=== PATIENT | male | born 1945 | race African-American/Black ===

== ENCOUNTER 2019-05-22 05:11 | Inpatient (IN) | payer MEDICAID, MEDICARE, OTHER ==
[~2019-05-22] VITALS: Ht 172.7 cm; Wt 89.9 kg
[2019-05-22] MEDS ORDERED: IPRATROPIUM BROMIDE 0.5 MG/2.5 ML NEB SOLUTION NEB ONE (05:30)
[2019-05-22] MEDS ORDERED: ALBUTEROL SULFATE 5 MG/ML 20 ML NEB SOLN [BULK] NEB ONE (05:30)
[2019-05-22] MEDS ORDERED: 0.9% SODIUM CHLORIDE 10 ML SYRINGE IVP PRN ×3 (05:30→11:30)
[2019-05-22] MEDS ORDERED: MethylPREDNISolone SOD SUCC 125 MG/2 ML VIAL IVP ONE (05:30)
[2019-05-22 05:37] LABS: ABG A-A DIFF O2 199.7 mmHg (10-20.0); ABG BASE EXCESS -1.7 mmol/L (-2.0-3.0); ABG CARBOXYHEMOGLOBIN 0.7 % (0.0-1.5); ABG HCO3 23.1 mmol/L (22.0-26.0); ABG METHEMOGLOBIN 0.2 % (0.0-1.5); ABG OXYGEN CONTENT 16.9 mL/dL (15.0-23.0); ABG OXYGEN SATURATION 97.9 % (95.0-98.0); ABG PCO2 41 mmHg (35-45); ABG PH 7.373 (7.35-7.450); ABG TOTAL HEMOGLOBIN 12.3 G/dL (12.0-18.0); O2 DEVICE,BLOOD GAS BIPAP (ROOM AIR); PO2, ARTERIAL BG 110.5 mmHg (75.0-83.0); SITE, BLOOD GAS LFT RADIAL; SOURCE, BLOOD GAS ARTERIAL; TEMPERATURE, FAHRENHEIT, BG 98.5 FAHREN (96.0-98.6)
[2019-05-22 05:41] LABS: BASOPHILS % (AUTO) 0.5 % (0.0-2.0); EOSINOPHILS % (AUTO) 1.9 % (1.0-6.0); HEMATOCRIT 37.4 % (41-53); HEMOGLOBIN 12.2 g/dL (13.5-17.5); LYMPHOCYTES # (AUTO) 3.4 K/uL (1.0-4.8); LYMPHOCYTES % (AUTO) 47.1 % (22.0-44.0); MEAN CORPUSCULAR HEMOGLOBIN 29.3 pg (26.0-34.0); MEAN CORPUSCULAR HGB CONC 32.5 G/dL (31.0-37.0); MEAN CORPUSCULAR VOLUME 90 fL (80-100); MONOCYTES # (AUTO) 0.4 K/uL (0.1-1.0); MONOCYTES % (AUTO) 5.8 % (2.0-9.0); NEUTROPHILS # (AUTO) 3.2 K/uL (1.8-7.7); NEUTROPHILS % (AUTO) 44.7 % (40.0-70.0); PLATELET COUNT (AUTO) 306 K/uL (150-450); RED BLOOD CELL COUNT(AUTO) 4.15 MIL/uL (4.50-5.90); RED CELL DISTRIBUTION WIDTH 16.9 % (11.5-14.5)
[2019-05-22] MEDS ORDERED: CefTRIAXone 1 GM/DEXTROSE 50 ML IV ONE (05:45)
[2019-05-22] MEDS ORDERED: AZITHROMYCIN 500 MG/NS 250 ML IV ONE (05:45)
[2019-05-22] MEDS ORDERED: ACETAMINOPHEN 325 MG TABLET PO PRN ×2 (05:45→11:30)
[2019-05-22] MEDS ORDERED: NITROGLYCERIN 100 MG in DEXTROSE 5%-WATER 230 ML IV PRN (05:45)
[2019-05-22] MEDS ORDERED: FUROSEMIDE 40 MG/4 ML VIAL IVP ONE (05:45)
[2019-05-22] MEDS ORDERED: ONDANSETRON HCL 4 MG/2 ML VIAL IVP PRN ×2 (05:45→11:30)
[2019-05-22 05:52] LABS: ANION GAP 9 mmol/L (8-16); CALCIUM, TOTAL 9.1 mg/dL (8.8-10.5); CARBON DIOXIDE 29 mmol/L (22-29); CHLORIDE 103 mmol/L (98-107); CREATININE 1.07 mg/dL (0.60-1.30); GLUCOSE,RANDOM 148 mg/dL (70-110); POTASSIUM 3.6 mmol/L (3.5-5.1); SODIUM SERUM 141 mmol/L (136-145); UREA NITROGEN, BLOOD 18 mg/dL (7-18)
[2019-05-22 05:53] LABS: INR 1.1 (0.9-1.1)
[2019-05-22 05:58] LABS: ALANINE AMINOTRANSFERASE 140 U/L (12-78); ALKALINE PHOSPHATASE 66 U/L (46-116); ASPARTATE AMINOTRANSFERASE 114 U/L (15-37); BILIRUBIN,TOTAL 0.3 mg/dL (0.1-1.0); TOTAL PROTEIN, SERUM 9.7 g/dL (6.4-8.2)
[2019-05-22 06:00] LABS: LACTIC ACID 1.9 mmol/L (0.4-2.0)
[2019-05-22] MEDS ORDERED: NITROGLYCERIN 50 MG/D5% WATER 250 ML IV PRN ×2 (06:00)
[2019-05-22 06:02] LABS: GLOMERULAR FILTR. RATE CALC > 60 mL/min (>60)
[2019-05-22] MEDS ORDERED: 0.9% SODIUM CHLORIDE 15 ML NEB SOLUTION NEB ONE (06:43)
[2019-05-22 07:14] LABS: APPEARANCE,URINE CLEAR (CLEAR); BILIRUBIN,URINE NEGATIVE (NEGATIVE); GLUCOSE, URINE (UA) NEGATIVE (NEGATIVE); KETONES,URINE NEGATIVE (NEGATIVE); LEUKOCYTE ESTERASE ,URINE NEGATIVE (NEGATIVE); NITRATE,URINE NEGATIVE (NEGATIVE); OCCULT BLOOD,URINE TRACE (NEGATIVE); PROTEIN,URINE SEE CONFIRM (NEGATIVE); UROBILINOGEN,URINE 0.2 mg/dL (<=1.0)
[2019-05-22 07:17] LABS: BACTERIA,URINE None Seen /HPF (None Seen); RBC,URINE 0-2 /HPF (0-2); SQUAMOUS EPITHELIAL CELL,UR Rare /LPF (None Seen); SULFOSALICYLIC ACID,URINE Trace (Negative); WBC,URINE None Seen /HPF (0-5)
[2019-05-22 08:00] VITALS: BP 161/120
[2019-05-22] MEDS ORDERED: INFLUENZA VIRUS VACCINE QVS 2019-20 (3YR+)/PF 60 MCG/0.5 ML SYRINGE IM ONE (10:45)
[2019-05-22] MEDS ORDERED: PNEUMOCOCCAL VACCINE POLYVALENT 0.5 ML VIAL [PPSV23] IM ONE (10:45)
[2019-05-22] MEDS ORDERED: POTASSIUM CHLORIDE 20 MEQ ER TABLET PO PRN (11:30)
[2019-05-22] MEDS ORDERED: CARVEDILOL 3.125 MG TABLET PO SCH (11:30)
[2019-05-22] MEDS: FAMOTIDINE 10 MG/ML 2 ML VIAL IVP SCH (11:30)
[2019-05-22] MEDS ORDERED: OxyCODONE HCL/ACETAMINOPHEN 5-325 MG TABLET PO PRN ×2 (11:30)
[2019-05-22] MEDS ORDERED: ALBUTEROL SULFATE 2.5 MG/0.5 ML NEB SOLUTION NEB PRN (11:30)
[2019-05-22] MEDS ORDERED: MAGNESIUM HYDROXIDE SUSPENSION 30 ML UDCUP PO PRN (11:30)
[2019-05-22] MEDS ORDERED: DEXTROSE 50%-WATER 25 GM/50 ML SYRINGE IVP PRN (11:30)
[2019-05-22] MEDS ORDERED: POTASSIUM CHL 10 MEQ/WATER 50 ML IV PRN (11:30)
[2019-05-22 12:00] VITALS: BP 171/90
[2019-05-22] MEDS: FUROSEMIDE 40 MG/4 ML VIAL IVP SCH ×2 (12:18→21:09)
[2019-05-22] MEDS: DOCUSATE SODIUM 100 MG CAPSULE PO SCH ×2 (12:18→21:09)
[2019-05-22] MEDS: HydrALAZINE HCL 20 MG/ML VIAL IVP PRN (12:52)
[2019-05-22] MEDS: IPRATROPIUM BROMIDE 0.5 MG/2.5 ML NEB SOLUTION NEB SCH ×2 (14:57→20:53)
[2019-05-22] MEDS: ALBUTEROL SULFATE 2.5 MG/0.5 ML NEB SOLUTION NEB SCH ×2 (14:58→20:53)
[2019-05-22 16:00] VITALS: BP 129/72
[2019-05-22 17:44] LABS: GLUCOSE,POINT OF CARE 96 MG/DL (70-110)
[2019-05-22] MEDS: CARVEDILOL 12.5 MG TABLET PO SCH (21:09)
[2019-05-22] MEDS: INSULIN LISPRO 100 UNITS/ML SQ PRN (21:37)
[2019-05-23] VITALS: BP 145/65
[2019-05-23] MEDS: IPRATROPIUM BROMIDE 0.5 MG/2.5 ML NEB SOLUTION NEB SCH ×4 (02:03→21:03)
[2019-05-23] MEDS: ALBUTEROL SULFATE 2.5 MG/0.5 ML NEB SOLUTION NEB SCH ×4 (02:03→21:03)
[2019-05-23 04:00] VITALS: BP 157/88
[2019-05-23] MEDS: HydrALAZINE HCL 20 MG/ML VIAL IVP PRN (04:39)
[2019-05-23 05:05] LABS: BASOPHILS % (AUTO) 0.7 % (0.0-2.0); EOSINOPHILS % (AUTO) 0.4 % (1.0-6.0); HEMATOCRIT 33.4 % (41-53); LYMPHOCYTES # (AUTO) 1.9 K/uL (1.0-4.8); LYMPHOCYTES % (AUTO) 28.9 % (22.0-44.0); MEAN CORPUSCULAR HEMOGLOBIN 29.3 pg (26.0-34.0); MEAN CORPUSCULAR HGB CONC 32.9 G/dL (31.0-37.0); MEAN CORPUSCULAR VOLUME 89 fL (80-100); MONOCYTES # (AUTO) 0.6 K/uL (0.1-1.0); MONOCYTES % (AUTO) 8.6 % (2.0-9.0); NEUTROPHILS % (AUTO) 61.4 % (40.0-70.0); PLATELET COUNT (AUTO) 255 K/uL (150-450); RED BLOOD CELL COUNT(AUTO) 3.76 MIL/uL (4.50-5.90); RED CELL DISTRIBUTION WIDTH 16.7 % (11.5-14.5)
[2019-05-23 05:16] LABS: CALCIUM, TOTAL 9.2 mg/dL (8.8-10.5); CREATININE 1.47 mg/dL (0.60-1.30); POTASSIUM 4.1 mmol/L (3.5-5.1)
[2019-05-23 07:14] LABS: GLUCOSE,POINT OF CARE 140 MG/DL (70-110)
[2019-05-23 07:14] LABS: GLUCOSE,POINT OF CARE 94 MG/DL (70-110)
[2019-05-23 07:14] LABS: GLUCOSE,POINT OF CARE 111 MG/DL (70-110)
[2019-05-23 08:00] VITALS: BP 170/109
[2019-05-23] MEDS: FAMOTIDINE 10 MG/ML 2 ML VIAL IVP SCH (08:40)
[2019-05-23] MEDS: LOSARTAN POTASSIUM 50 MG TABLET PO SCH (08:40)
[2019-05-23] MEDS: DOCUSATE SODIUM 100 MG CAPSULE PO SCH ×2 (08:40→20:26)
[2019-05-23] MEDS: CARVEDILOL 12.5 MG TABLET PO SCH ×2 (08:40→20:27)
[2019-05-23] MEDS: FUROSEMIDE 40 MG/4 ML VIAL IVP SCH (08:41)
[2019-05-23] MEDS ORDERED: LOSARTAN POTASSIUM 25 MG TABLET PO SCH (09:00)
[2019-05-23 12:00] VITALS: BP 127/66
[2019-05-23 14:02] LABS: GLUCOSE,POINT OF CARE 104 MG/DL (70-110)
[2019-05-23 14:46] VITALS: BP 128/67
[2019-05-23 20:13] VITALS: BP 141/85
[2019-05-24] VITALS (19 sets, daily range): BP systolic 125–173; BP diastolic 62–134
[2019-05-24] MEDS: IPRATROPIUM BROMIDE 0.5 MG/2.5 ML NEB SOLUTION NEB SCH ×2 (02:29→07:37)
[2019-05-24] MEDS: ALBUTEROL SULFATE 2.5 MG/0.5 ML NEB SOLUTION NEB SCH ×2 (02:30→07:37)
[2019-05-24 06:28] LABS: BASOPHILS % (AUTO) 0.4 % (0.0-2.0); EOSINOPHILS % (AUTO) 4.2 % (1.0-6.0); HEMATOCRIT 34.2 % (41-53); HEMOGLOBIN 11.2 g/dL (13.5-17.5); LYMPHOCYTES # (AUTO) 1.9 K/uL (1.0-4.8); LYMPHOCYTES % (AUTO) 39.1 % (22.0-44.0); MEAN CORPUSCULAR HEMOGLOBIN 29.5 pg (26.0-34.0); MEAN CORPUSCULAR HGB CONC 32.8 G/dL (31.0-37.0); MEAN CORPUSCULAR VOLUME 90 fL (80-100); MONOCYTES # (AUTO) 0.3 K/uL (0.1-1.0); NEUTROPHILS # (AUTO) 2.4 K/uL (1.8-7.7); NEUTROPHILS % (AUTO) 49.3 % (40.0-70.0); PLATELET COUNT (AUTO) 249 K/uL (150-450); RED CELL DISTRIBUTION WIDTH 17.2 % (11.5-14.5)
[2019-05-24 06:39] LABS: INR 1.1 (0.9-1.1); PROTHROMBIN TIME 11.1 SEC (9.4-11.6)
[2019-05-24] MEDS ORDERED: SODIUM CHLORIDE 0.9% 2,000 ML ONE (06:43)
[2019-05-24 06:50] LABS: ALANINE AMINOTRANSFERASE 78 U/L (12-78); ALBUMIN 2.4 g/dL (3.4-5.0); ALKALINE PHOSPHATASE 47 U/L (46-116); ANION GAP 6 mmol/L (8-16); ASPARTATE AMINOTRANSFERASE 42 U/L (15-37); BILIRUBIN,TOTAL 0.2 mg/dL (0.1-1.0); CALCIUM, TOTAL 8.4 mg/dL (8.8-10.5); CARBON DIOXIDE 28 mmol/L (22-29); CHLORIDE 105 mmol/L (98-107); CREATININE 1.13 mg/dL (0.60-1.30); GLUCOSE,RANDOM 93 mg/dL (70-110); POTASSIUM 4.2 mmol/L (3.5-5.1); SODIUM SERUM 139 mmol/L (136-145); UREA NITROGEN, BLOOD 29 mg/dL (7-18)
[2019-05-24 06:54] LABS: GLOMERULAR FILTR. RATE CALC > 60 mL/min (>60)
[2019-05-24] MEDS: CARVEDILOL 12.5 MG TABLET PO SCH ×2 (08:06→21:49)
[2019-05-24] MEDS: LOSARTAN POTASSIUM 50 MG TABLET PO SCH (08:06)
[2019-05-24] MEDS ORDERED: HEPARIN SODIUM 1000 UNITS/NS 1,000 ML ONE (08:23)
[2019-05-24] MEDS ORDERED: IOHEXOL 300 MG/ML 150 ML VIAL ONE (08:23)
[2019-05-24] MEDS ORDERED: SODIUM BICARBONATE 50 MEQ/50 ML VIAL ONE (08:23)
[2019-05-24] MEDS ORDERED: LIDOCAINE/PF 1% 30 ML VIAL ONE (08:23)
[2019-05-24] MEDS ORDERED: HEPARIN SODIUM 1000 UNITS/NS 500 ML ONE (08:26)
[2019-05-24] MEDS: DOCUSATE SODIUM 100 MG CAPSULE PO SCH ×2 (09:00→21:00)
[2019-05-24] MEDS ORDERED: MIDAZOLAM HCL 2 MG/2 ML VIAL ONE (09:14)
[2019-05-24] MEDS ORDERED: FentaNYL CITRATE-PF 100 MCG/2 ML VIAL ONE (09:14)
[2019-05-24] MEDS ORDERED: TICAGRELOR 90 MG TABLET ONE (09:25)
[2019-05-24] MEDS ORDERED: ASPIRIN 325 MG TABLET ONE (09:25)
[2019-05-24] MEDS ORDERED: IOHEXOL 300 MG/ML 100 ML VIAL ONE (09:31)
[2019-05-24] MEDS ORDERED: IOHEXOL 300 MG/ML 50 ML VIAL ONE (09:31)
[2019-05-24] MEDS ORDERED: NITROGLYCERIN 50 MG/D5% WATER 250 ML ONE (09:47)
[2019-05-24] MEDS ORDERED: VERAPAMIL HCL 2.5 MG/ML 2 ML VIAL ONE (09:47)
[2019-05-24] MEDS ORDERED: HEPARIN SODIUM,PORCINE 1,000 UNITS/ML 10 ML VIAL ONE (09:50)
[2019-05-24] MEDS ORDERED: HEPARIN SODIUM 2,000 UNITS in HEPARIN SODIUM 1000 UNITS/NS 1,000 ML IARTER ONE (10:19)
[2019-05-24] MEDS ORDERED: SODIUM CHLORIDE 0.9% 500 ML IV ONE (10:19)
[2019-05-24] MEDS ORDERED: MIDAZOLAM HCL 2 MG/2 ML VIAL IVP ONE (10:30)
[2019-05-24] MEDS ORDERED: ASPIRIN 325 MG TABLET PO ONE (10:30)
[2019-05-24] MEDS ORDERED: VERAPAMIL HCL 2.5 MG/ML 2 ML VIAL ICOR ONE (10:30)
[2019-05-24] MEDS ORDERED: IOHEXOL 300 MG/ML 100 ML VIAL IARTER ONE (10:30)
[2019-05-24] MEDS ORDERED: NITROGLYCERIN/D5W 50 MG/250 ML IV BOTTLE ICOR ONE (10:30)
[2019-05-24] MEDS ORDERED: HEPARIN SODIUM,PORCINE 5,000 UNITS/ML VIAL IVP ONE ×4 (10:30→14:30)
[2019-05-24] MEDS ORDERED: TICAGRELOR 90 MG TABLET PO ONE (10:30)
[2019-05-24] MEDS ORDERED: IOHEXOL 300 MG/ML 150 ML VIAL IARTER ONE (10:30)
[2019-05-24] MEDS ORDERED: LIDOCAINE 1% 30 ML/SOD BICARB 8.4% 4 ML SQ ONE (10:30)
[2019-05-24] MEDS ORDERED: FentaNYL CITRATE-PF 100 MCG/2 ML VIAL IVP ONE (10:30)
[2019-05-24] MEDS: FAMOTIDINE 10 MG/ML 2 ML VIAL IVP SCH (10:45)
[2019-05-24] MEDS: AmLODIPine BESYLATE 5 MG TABLET PO SCH (11:45)
[2019-05-24 12:29] LABS: GLUCOSE,POINT OF CARE 79 MG/DL (70-110)
[2019-05-24] MEDS: HydrALAZINE HCL 20 MG/ML VIAL IVP PRN (14:14)
[2019-05-24] MEDS: TICAGRELOR 90 MG TABLET PO SCH (21:49)
[2019-05-25] VITALS (7 sets, daily range): BP systolic 122–158; BP diastolic 43–96
[2019-05-25] MEDS: ALBUTEROL SULFATE 2.5 MG/0.5 ML NEB SOLUTION NEB SCH ×4 (01:21→19:39)
[2019-05-25] MEDS: IPRATROPIUM BROMIDE 0.5 MG/2.5 ML NEB SOLUTION NEB SCH ×4 (01:21→19:39)
[2019-05-25 06:14] LABS: BASOPHILS % (AUTO) 0.3 % (0.0-2.0); EOSINOPHILS % (AUTO) 4.4 % (1.0-6.0); HEMATOCRIT 35.8 % (41-53); HEMOGLOBIN 11.7 g/dL (13.5-17.5); LYMPHOCYTES % (AUTO) 41.3 % (22.0-44.0); MEAN CORPUSCULAR HEMOGLOBIN 29.3 pg (26.0-34.0); MEAN CORPUSCULAR HGB CONC 32.7 G/dL (31.0-37.0); MEAN CORPUSCULAR VOLUME 90 fL (80-100); MONOCYTES # (AUTO) 0.3 K/uL (0.1-1.0); MONOCYTES % (AUTO) 7.3 % (2.0-9.0); NEUTROPHILS # (AUTO) 2.2 K/uL (1.8-7.7); NEUTROPHILS % (AUTO) 46.7 % (40.0-70.0); PLATELET COUNT (AUTO) 258 K/uL (150-450); RED CELL DISTRIBUTION WIDTH 17.2 % (11.5-14.5)
[2019-05-25 06:34] LABS: ALANINE AMINOTRANSFERASE 59 U/L (12-78); ALBUMIN 2.3 g/dL (3.4-5.0); ALKALINE PHOSPHATASE 45 U/L (46-116); ANION GAP 5 mmol/L (8-16); ASPARTATE AMINOTRANSFERASE 31 U/L (15-37); BILIRUBIN,TOTAL 0.3 mg/dL (0.1-1.0); CALCIUM, TOTAL 8.4 mg/dL (8.8-10.5); CARBON DIOXIDE 27 mmol/L (22-29); CHLORIDE 104 mmol/L (98-107); CREATININE 1.08 mg/dL (0.60-1.30); GLUCOSE,RANDOM 96 mg/dL (70-110); SODIUM SERUM 136 mmol/L (136-145); TOTAL PROTEIN, SERUM 7.9 g/dL (6.4-8.2); UREA NITROGEN, BLOOD 17 mg/dL (7-18)
[2019-05-25 06:42] LABS: GLOMERULAR FILTR. RATE CALC > 60 mL/min (>60)
[2019-05-25 06:44] LABS: GLUCOSE,POINT OF CARE 122 MG/DL (70-110)
[2019-05-25] MEDS: DOCUSATE SODIUM 100 MG CAPSULE PO SCH ×2 (09:00→20:08)
[2019-05-25] MEDS: LOSARTAN POTASSIUM 50 MG TABLET PO SCH (09:02)
[2019-05-25] MEDS: TICAGRELOR 90 MG TABLET PO SCH ×2 (09:03→19:56)
[2019-05-25] MEDS: CARVEDILOL 12.5 MG TABLET PO SCH ×2 (09:03→19:56)
[2019-05-25] MEDS: ASPIRIN 81 MG CHEWABLE TABLET PO SCH (09:03)
[2019-05-25] MEDS: FAMOTIDINE 10 MG/ML 2 ML VIAL IVP SCH (09:04)
[2019-05-25] MEDS: AmLODIPine BESYLATE 5 MG TABLET PO SCH (09:04)
[2019-05-25] MEDS ORDERED: ASPI81TA87 PO (12:01)
[2019-05-25] MEDS ORDERED: AMLO5TAB9 PO (12:03)
[2019-05-25] MEDS ORDERED: LOSA-88 PO (12:05)
[2019-05-25] MEDS ORDERED: CARV12.530 PO (12:05)
[2019-05-25] MEDS ORDERED: TICA90TA PO (12:06)
[2019-05-25] MEDS ORDERED: ACET-66 PO (12:08)
[2019-05-25] MEDS ORDERED: ALBU2TAB42 NEB (12:09)
[2019-05-25] MEDS ORDERED: IPRAHFA NEB (12:12)
[2019-05-25] MEDS ORDERED: MOM30 PO (12:15)
[2019-05-25] MEDS ORDERED: INSU100V SQ (12:15)
[2019-05-25] MEDS ORDERED: PERCT PO (12:17)
[2019-05-25] MEDS ORDERED: FURO20 PO (12:18)
[2019-05-26] MEDS: IPRATROPIUM BROMIDE 0.5 MG/2.5 ML NEB SOLUTION NEB SCH ×4 (02:19→21:34)
[2019-05-26] MEDS: ALBUTEROL SULFATE 2.5 MG/0.5 ML NEB SOLUTION NEB SCH ×4 (02:19→21:34)
[2019-05-26 04:37] VITALS: BP 134/71
[2019-05-26 07:25] VITALS: BP 150/94
[2019-05-26] MEDS: ASPIRIN 81 MG CHEWABLE TABLET PO SCH (07:48)
[2019-05-26] MEDS: CARVEDILOL 12.5 MG TABLET PO SCH ×2 (07:49→21:14)
[2019-05-26] MEDS: FAMOTIDINE 10 MG/ML 2 ML VIAL IVP SCH (07:49)
[2019-05-26] MEDS: TICAGRELOR 90 MG TABLET PO SCH ×2 (07:49→21:14)
[2019-05-26] MEDS: AmLODIPine BESYLATE 5 MG TABLET PO SCH (07:50)
[2019-05-26] MEDS: LOSARTAN POTASSIUM 50 MG TABLET PO SCH (07:50)
[2019-05-26] MEDS: DOCUSATE SODIUM 100 MG CAPSULE PO SCH ×2 (07:55→21:00)
[2019-05-26 11:36] VITALS: BP 146/72
[2019-05-26 11:51] LABS: GLUCOMETER DEV NAME(LOC) 5N.1; GLUCOSE,POINT OF CARE 106 MG/DL (70-110)
[2019-05-26 11:51] LABS: GLUCOMETER DEV NAME(LOC) 5N.1; GLUCOSE,POINT OF CARE 93 MG/DL (70-110)
[2019-05-26 11:51] LABS: GLUCOMETER DEV NAME(LOC) 5N.1; GLUCOSE,POINT OF CARE 123 MG/DL (70-110)
[2019-05-26 11:51] LABS: GLUCOMETER DEV NAME(LOC) 5N.1; GLUCOSE,POINT OF CARE 97 MG/DL (70-110)
[2019-05-26] MEDS: INSULIN LISPRO 100 UNITS/ML SQ PRN (11:58)
[2019-05-26 12:04] LABS: GLUCOMETER DEV NAME(LOC) 5S.1; GLUCOSE,POINT OF CARE 111 MG/DL (70-110)
[2019-05-26 12:04] LABS: GLUCOMETER DEV NAME(LOC) 5S.1; GLUCOSE,POINT OF CARE 146 MG/DL (70-110)
[2019-05-26 12:04] LABS: GLUCOMETER DEV NAME(LOC) 5S.1; GLUCOSE,POINT OF CARE 127 MG/DL (70-110)
[2019-05-26 12:04] LABS: GLUCOMETER DEV NAME(LOC) 5S.1; GLUCOSE,POINT OF CARE 99 MG/DL (70-110)
[2019-05-26 12:04] LABS: GLUCOMETER DEV NAME(LOC) 5S.1; GLUCOSE,POINT OF CARE 129 MG/DL (70-110)
[2019-05-26 12:04] LABS: GLUCOMETER DEV NAME(LOC) 5S.1; GLUCOSE,POINT OF CARE 111 MG/DL (70-110)
[2019-05-26 20:54] VITALS: BP 154/75
[2019-05-27 01:23] VITALS: BP 139/78
[2019-05-27] MEDS: IPRATROPIUM BROMIDE 0.5 MG/2.5 ML NEB SOLUTION NEB SCH ×4 (02:16→19:28)
[2019-05-27] MEDS: ALBUTEROL SULFATE 2.5 MG/0.5 ML NEB SOLUTION NEB SCH ×4 (02:16→19:28)
[2019-05-27 06:26] VITALS: BP 143/72
[2019-05-27 07:40] VITALS: BP 146/66
[2019-05-27] MEDS: ASPIRIN 81 MG CHEWABLE TABLET PO SCH (09:00)
[2019-05-27] MEDS: CARVEDILOL 12.5 MG TABLET PO SCH ×2 (09:00→20:23)
[2019-05-27] MEDS: FAMOTIDINE 10 MG/ML 2 ML VIAL IVP SCH ×2 (09:00→09:01)
[2019-05-27] MEDS: DOCUSATE SODIUM 100 MG CAPSULE PO SCH ×2 (09:00→20:24)
[2019-05-27] MEDS: TICAGRELOR 90 MG TABLET PO SCH ×2 (09:00→20:23)
[2019-05-27] MEDS: LOSARTAN POTASSIUM 50 MG TABLET PO SCH (09:00)
[2019-05-27] MEDS: AmLODIPine BESYLATE 5 MG TABLET PO SCH (09:01)
[2019-05-27 11:10] VITALS: BP 145/71
[2019-05-27] MEDS: INSULIN LISPRO 100 UNITS/ML SQ PRN (12:05)
[2019-05-27 15:50] VITALS: BP 126/70
[2019-05-27 18:59] LABS: GLUCOMETER DEV NAME(LOC) 5N.1; GLUCOSE,POINT OF CARE 100 MG/DL (70-110)
[2019-05-27 18:59] LABS: GLUCOMETER DEV NAME(LOC) 5N.1; GLUCOSE,POINT OF CARE 75 MG/DL (70-110)
[2019-05-27 19:00] LABS: GLUCOMETER DEV NAME(LOC) 5S.1; GLUCOSE,POINT OF CARE 121 MG/DL (70-110)
[2019-05-27 19:00] LABS: GLUCOMETER DEV NAME(LOC) 5S.1; GLUCOSE,POINT OF CARE 107 MG/DL (70-110)
[2019-05-27 19:00] LABS: GLUCOMETER DEV NAME(LOC) 5S.1; GLUCOSE,POINT OF CARE 137 MG/DL (70-110)
[2019-05-27 20:23] VITALS: BP 140/73
[2019-05-27 22:41] LABS: GLUCOMETER DEV NAME(LOC) 5N.1; GLUCOSE,POINT OF CARE 115 MG/DL (70-110)
[2019-05-28 00:38] VITALS: BP 110/56
[2019-05-28] MEDS: ALBUTEROL SULFATE 2.5 MG/0.5 ML NEB SOLUTION NEB SCH ×4 (02:34→19:19)
[2019-05-28] MEDS: IPRATROPIUM BROMIDE 0.5 MG/2.5 ML NEB SOLUTION NEB SCH ×4 (02:35→19:19)
[2019-05-28 04:18] VITALS: BP 136/64
[2019-05-28 05:20] LABS: GLUCOMETER DEV NAME(LOC) 5N.1; GLUCOSE,POINT OF CARE 89 MG/DL (70-110)
[2019-05-28 07:33] VITALS: BP 145/75
[2019-05-28 07:43] LABS: BASOPHILS % (AUTO) 0.4 % (0.0-2.0); HEMATOCRIT 36.1 % (41-53); HEMOGLOBIN 11.8 g/dL (13.5-17.5); LYMPHOCYTES # (AUTO) 2.2 K/uL (1.0-4.8); LYMPHOCYTES % (AUTO) 52.2 % (22.0-44.0); MEAN CORPUSCULAR HEMOGLOBIN 29.2 pg (26.0-34.0); MEAN CORPUSCULAR HGB CONC 32.8 G/dL (31.0-37.0); MEAN CORPUSCULAR VOLUME 89 fL (80-100); MONOCYTES # (AUTO) 0.3 K/uL (0.1-1.0); MONOCYTES % (AUTO) 8.1 % (2.0-9.0); NEUTROPHILS # (AUTO) 1.4 K/uL (1.8-7.7); NEUTROPHILS % (AUTO) 33.3 % (40.0-70.0); PLATELET COUNT (AUTO) 239 K/uL (150-450); RED BLOOD CELL COUNT(AUTO) 4.06 MIL/uL (4.50-5.90); RED CELL DISTRIBUTION WIDTH 17.3 % (11.5-14.5)
[2019-05-28 08:03] LABS: ANION GAP 8 mmol/L (8-16); CALCIUM, TOTAL 8.2 mg/dL (8.8-10.5); CARBON DIOXIDE 25 mmol/L (22-29); CHLORIDE 107 mmol/L (98-107); GLUCOSE,RANDOM 85 mg/dL (70-110); POTASSIUM 4.5 mmol/L (3.5-5.1); SODIUM SERUM 140 mmol/L (136-145); UREA NITROGEN, BLOOD 16 mg/dL (7-18)
[2019-05-28 08:05] LABS: GLOMERULAR FILTR. RATE CALC > 60 mL/min (>60)
[2019-05-28] MEDS: LOSARTAN POTASSIUM 50 MG TABLET PO SCH (08:18)
[2019-05-28] MEDS: ASPIRIN 81 MG CHEWABLE TABLET PO SCH (08:18)
[2019-05-28] MEDS: AmLODIPine BESYLATE 5 MG TABLET PO SCH (08:18)
[2019-05-28] MEDS: TICAGRELOR 90 MG TABLET PO SCH ×2 (08:18→21:04)
[2019-05-28] MEDS: DOCUSATE SODIUM 100 MG CAPSULE PO SCH ×2 (08:19→21:00)
[2019-05-28] MEDS: CARVEDILOL 12.5 MG TABLET PO SCH ×2 (08:19→21:04)
[2019-05-28] MEDS: FAMOTIDINE 10 MG/ML 2 ML VIAL IVP SCH (09:00)
[2019-05-28 12:06] VITALS: BP 126/81
[2019-05-28 16:17] VITALS: BP 120/69
[2019-05-28 21:34] VITALS: BP 111/70
[2019-05-29 01:04] VITALS: BP 106/68
[2019-05-29] MEDS: IPRATROPIUM BROMIDE 0.5 MG/2.5 ML NEB SOLUTION NEB SCH ×4 (01:44→20:10)
[2019-05-29] MEDS: ALBUTEROL SULFATE 2.5 MG/0.5 ML NEB SOLUTION NEB SCH ×4 (01:44→20:10)
[2019-05-29 03:40] LABS: GLUCOMETER DEV NAME(LOC) 5S.1; GLUCOSE,POINT OF CARE 92 MG/DL (70-110)
[2019-05-29 03:40] LABS: GLUCOMETER DEV NAME(LOC) 5S.1; GLUCOSE,POINT OF CARE 90 MG/DL (70-110)
[2019-05-29 03:40] LABS: GLUCOMETER DEV NAME(LOC) 5S.1; GLUCOSE,POINT OF CARE 112 MG/DL (70-110)
[2019-05-29 05:31] VITALS: BP 106/66
[2019-05-29 06:42] LABS: BASOPHILS % (AUTO) 0.6 % (0.0-2.0); EOSINOPHILS % (AUTO) 7.6 % (1.0-6.0); HEMATOCRIT 35.6 % (41-53); HEMOGLOBIN 11.9 g/dL (13.5-17.5); LYMPHOCYTES # (AUTO) 2.1 K/uL (1.0-4.8); LYMPHOCYTES % (AUTO) 47.6 % (22.0-44.0); MEAN CORPUSCULAR HEMOGLOBIN 29.7 pg (26.0-34.0); MEAN CORPUSCULAR HGB CONC 33.4 G/dL (31.0-37.0); MEAN CORPUSCULAR VOLUME 89 fL (80-100); MONOCYTES # (AUTO) 0.4 K/uL (0.1-1.0); MONOCYTES % (AUTO) 8.6 % (2.0-9.0); NEUTROPHILS # (AUTO) 1.6 K/uL (1.8-7.7); NEUTROPHILS % (AUTO) 35.6 % (40.0-70.0); PLATELET COUNT (AUTO) 260 K/uL (150-450); RED BLOOD CELL COUNT(AUTO) 3.99 MIL/uL (4.50-5.90); RED CELL DISTRIBUTION WIDTH 16.8 % (11.5-14.5)
[2019-05-29 06:56] LABS: ANION GAP 6 mmol/L (8-16); CALCIUM, TOTAL 8.5 mg/dL (8.8-10.5); CARBON DIOXIDE 25 mmol/L (22-29); CHLORIDE 105 mmol/L (98-107); GLOMERULAR FILTR. RATE CALC > 60 mL/min (>60); GLUCOSE,RANDOM 87 mg/dL (70-110); POTASSIUM 4.3 mmol/L (3.5-5.1); SODIUM SERUM 136 mmol/L (136-145); UREA NITROGEN, BLOOD 20 mg/dL (7-18)
[2019-05-29 07:39] LABS: GLUCOMETER DEV NAME(LOC) 5S.1; GLUCOSE,POINT OF CARE 95 MG/DL (70-110)
[2019-05-29 07:43] VITALS: BP 118/69
[2019-05-29] MEDS: AmLODIPine BESYLATE 5 MG TABLET PO SCH (08:12)
[2019-05-29] MEDS: ASPIRIN 81 MG CHEWABLE TABLET PO SCH (08:12)
[2019-05-29] MEDS: TICAGRELOR 90 MG TABLET PO SCH ×2 (08:12→20:39)
[2019-05-29] MEDS: CARVEDILOL 12.5 MG TABLET PO SCH ×2 (08:12→20:40)
[2019-05-29] MEDS: LOSARTAN POTASSIUM 50 MG TABLET PO SCH (08:13)
[2019-05-29] MEDS: DOCUSATE SODIUM 100 MG CAPSULE PO SCH ×2 (08:16→20:40)
[2019-05-29] MEDS: FAMOTIDINE 10 MG/ML 2 ML VIAL IVP SCH (09:00)
[2019-05-29 11:46] VITALS: BP 118/64
[2019-05-29 15:40] VITALS: BP 133/60
[2019-05-29 19:32] VITALS: BP 133/56
[2019-05-29 21:58] LABS: GLUCOMETER DEV NAME(LOC) 5S.1; GLUCOSE,POINT OF CARE 109 MG/DL (70-110)
[2019-05-29 21:58] LABS: GLUCOMETER DEV NAME(LOC) 5S.1; GLUCOSE,POINT OF CARE 103 MG/DL (70-110)
[2019-05-29 21:58] LABS: GLUCOMETER DEV NAME(LOC) 5S.1; GLUCOSE,POINT OF CARE 93 MG/DL (70-110)
[2019-05-30 00:01] VITALS: BP 122/76
[2019-05-30] MEDS: ALBUTEROL SULFATE 2.5 MG/0.5 ML NEB SOLUTION NEB SCH (02:17)
[2019-05-30] MEDS: IPRATROPIUM BROMIDE 0.5 MG/2.5 ML NEB SOLUTION NEB SCH (02:17)
[2019-05-30 04:50] VITALS: BP 134/69
[2019-05-30 05:41] LABS: GLUCOMETER DEV NAME(LOC) 5N.1; GLUCOSE,POINT OF CARE 84 MG/DL (70-110)
[2019-05-30 07:44] VITALS: BP 130/65
[2019-05-30] MEDS: FAMOTIDINE 10 MG/ML 2 ML VIAL IVP SCH (08:19)
[2019-05-30] MEDS: DOCUSATE SODIUM 100 MG CAPSULE PO SCH (08:19)
[2019-05-30] MEDS: ASPIRIN 81 MG CHEWABLE TABLET PO SCH (08:20)
[2019-05-30] MEDS: CARVEDILOL 12.5 MG TABLET PO SCH (08:20)
[2019-05-30] MEDS: TICAGRELOR 90 MG TABLET PO SCH (08:20)
[2019-05-30] MEDS: LOSARTAN POTASSIUM 50 MG TABLET PO SCH (08:21)
[2019-05-30] MEDS: AmLODIPine BESYLATE 5 MG TABLET PO SCH (08:22)
== END 2019-05-30 10:30 | disposition home or self-care (01) | DRG 246 ==
LOC: EMS 05:11 → ICU 06:36 → 5N 05-23 14:30 → ICU 05-24 10:07 → 5N 05-24 19:55 → UNDODISIN 05-26 15:40
PROVIDERS: ADMIT Internal Medicine; ATTEND Internal Medicine
PROC: 5A09357 Assistance with Respiratory Ventilation, Less than 24 Consecutive Hours, Continuous Positive Airway Pressure (ICD-10-PCS; 2019-05-22)
PROC: 3E0234Z Introduction of Serum, Toxoid and Vaccine into Muscle, Percutaneous Approach (ICD-10-PCS; 2019-05-22)
PROC: 3E02340 Introduction of Influenza Vaccine into Muscle, Percutaneous Approach (ICD-10-PCS; 2019-05-22)
PROC: 027034Z Dilation of Coronary Artery, One Artery with Drug-eluting Intraluminal Device, Percutaneous Approach (ICD-10-PCS; principal; 2019-05-24)
PROC: 4A023N7 Measurement of Cardiac Sampling and Pressure, Left Heart, Percutaneous Approach (ICD-10-PCS; 2019-05-24)
PROC: B2111ZZ Fluoroscopy of Multiple Coronary Arteries using Low Osmolar Contrast (ICD-10-PCS; 2019-05-24)
PROC: B2151ZZ Fluoroscopy of Left Heart using Low Osmolar Contrast (ICD-10-PCS; 2019-05-24)
PROC: B41F1ZZ Fluoroscopy of Right Lower Extremity Arteries using Low Osmolar Contrast (ICD-10-PCS; 2019-05-24)
DX: I25.10 Atherosclerotic heart disease of native coronary artery without angina pectoris (principal); E43 Unspecified severe protein-calorie malnutrition; J96.01 Acute respiratory failure with hypoxia; I50.23 Acute on chronic systolic (congestive) heart failure; I13.0 Hypertensive heart and chronic kidney disease with heart failure and stage 1 through stage 4 chronic kidney disease, or unspecified chronic kidney disease; J44.1 Chronic obstructive pulmonary disease with (acute) exacerbation; I16.1 Hypertensive emergency; E78.5 Hyperlipidemia, unspecified; E11.22 Type 2 diabetes mellitus with diabetic chronic kidney disease; I16.0 Hypertensive urgency; R74.8 Abnormal levels of other serum enzymes; F17.210 Nicotine dependence, cigarettes, uncomplicated; N18.9 Chronic kidney disease, unspecified; I25.5 Ischemic cardiomyopathy; D64.9 Anemia, unspecified; Z87.01 Personal history of pneumonia (recurrent); Z91.14 Patient's other noncompliance with medication regimen; Z91.19 Patient's noncompliance with other medical treatment and regimen; Z23 Encounter for immunization
CPT/HCPCS: 71250; 82805; 83036; 83605; 87040; 87081; 90686; 90732; 92920; 92928; 93005; 93306; 94640; 94644; 94660; 97162; 97165; 97535; 99291; G0378; J0360; J0456; J0696; J1644; J1940; J2250; J2930; J3010; J3490; J7030; Q9967

== ENCOUNTER → 2019-06-09 | Outpatient (CLI) | payer MEDICARE, OTHER ==
[~2019-06-09] VITALS: Ht 162.6 cm; Wt 86.0 kg
[~2019-06-09] MED LIST: AMLO5TAB9 PO; ASPI81TA87 PO; CARV12.530 PO; LOSA-88 PO; TICA90TA PO
[2019-06-09 10:21] VITALS: BP 150/85
== END | disposition home or self-care (01) ==
LOC: SRCNTR 10:12
PROVIDERS: ATTEND Internal Medicine Cardiovascular Disease
DX: I25.10 Atherosclerotic heart disease of native coronary artery without angina pectoris (principal); J44.9 Chronic obstructive pulmonary disease, unspecified; I10 Essential (primary) hypertension; E78.5 Hyperlipidemia, unspecified; Z79.899 Other long term (current) drug therapy; Z79.82 Long term (current) use of aspirin; Z95.828 Presence of other vascular implants and grafts; Z87.891 Personal history of nicotine dependence
CPT/HCPCS: 93005; G0463

== ENCOUNTER 2021-07-01 12:38 | Inpatient (IN) | payer MEDICARE ==
[~2021-07-01] VITALS: Ht 185.4 cm; Wt 104.5 kg
[~2021-07-01 12:38] MED LIST changes: +AMLO-257 PO; -AMLO5TAB9 PO; -ASPI81TA87 PO; +LOSA-382 PO; -LOSA-88 PO; -TICA90TA PO
[2021-07-01] MEDS ORDERED: DEXTROSE 50%-WATER 25 GM/50 ML SYRINGE IVP ONE ×4 (13:26→20:30)
[2021-07-01 14:06] LABS: BASOPHILS % (AUTO) 0.6 % (0.0-2.0); HEMATOCRIT 26.8 % (41-53); HEMOGLOBIN 8.6 g/dL (13.5-17.5); LYMPHOCYTES # (AUTO) 0.7 K/uL (1.0-4.8); LYMPHOCYTES % (AUTO) 22.4 % (22.0-44.0); MEAN CORPUSCULAR HEMOGLOBIN 27.8 pg (26.0-34.0); MEAN CORPUSCULAR HGB CONC 32.2 G/dL (31.0-37.0); MEAN CORPUSCULAR VOLUME 87 fL (80-100); MONOCYTES # (AUTO) 0.2 K/uL (0.1-1.0); MONOCYTES % (AUTO) 5.3 % (2.0-9.0); NEUTROPHILS # (AUTO) 2.3 K/uL (1.8-7.7); NEUTROPHILS % (AUTO) 69.7 % (40.0-70.0); PLATELET COUNT (AUTO) 167 K/uL (150-450); RED CELL DISTRIBUTION WIDTH 23.7 % (11.5-14.5)
[2021-07-01 14:16] LABS: CALCIUM, TOTAL 7.6 mg/dL (8.8-10.5); CREATININE 1.55 mg/dL (0.60-1.30); POTASSIUM 3.4 mmol/L (3.5-5.1)
[2021-07-01 14:19] LABS: INR 1.3 (0.9-1.1); PROTHROMBIN TIME 13.7 SEC (9.4-11.6)
[2021-07-01 14:26] LABS: ALBUMIN 1.6 g/dL (3.4-5.0); BILIRUBIN,TOTAL 0.3 mg/dL (0.1-1.0); TOTAL PROTEIN, SERUM 11.6 g/dL (6.4-8.2)
[2021-07-01 15:11] LABS: GLUCOSE,POINT OF CARE 74 MG/DL (70-110)
[2021-07-01 16:11] LABS: GLUCOSE,POINT OF CARE 64 MG/DL (70-110)
[2021-07-01 17:46] LABS: GLUCOSE,POINT OF CARE 61 MG/DL (70-110)
[2021-07-01 19:06] LABS: GLUCOSE,POINT OF CARE 57 MG/DL (70-110)
[2021-07-01 19:41] LABS: GLUCOSE,POINT OF CARE 61 MG/DL (70-110)
[2021-07-01 19:43] LABS: COVID AG,FIA SOURCE NASAL SWAB
[2021-07-01] MEDS ORDERED: OCTREOTIDE ACETATE 100 MCG/ML VIAL IVP ONE (19:45)
[2021-07-01] MEDS ORDERED: HYDROCODONE/ACETAMINOPHEN 5-325 MG TABLET PO PRN (20:00)
[2021-07-01] MEDS ORDERED: MORPHINE SULFATE 2 MG/ML SYRINGE IVP PRN (20:00)
[2021-07-01] MEDS ORDERED: ZOLPIDEM TARTRATE 5 MG TABLET PO PRN (20:00)
[2021-07-01] MEDS ORDERED: MAGNESIUM HYDROXIDE SUSPENSION 30 ML UDCUP PO PRN (20:00)
[2021-07-01] MEDS ORDERED: ONDANSETRON HCL 4 MG/2 ML VIAL IVP PRN (20:00)
[2021-07-01] MEDS ORDERED: BISACODYL 10 MG RECTAL RECTAL SUPPOSITORY PR PRN (20:00)
[2021-07-01] MEDS ORDERED: ACETAMINOPHEN 325 MG TABLET PO PRN (20:00)
[2021-07-01 20:10] LABS: GLUCOSE,POINT OF CARE 25 MG/DL (70-110)
[2021-07-01 20:46] LABS: GLUCOSE,POINT OF CARE 95 MG/DL (70-110)
[2021-07-01] MEDS: DOCUSATE SODIUM 100 MG CAPSULE PO SCH (21:00)
[2021-07-01 21:11] LABS: GLUCOSE,POINT OF CARE 144 MG/DL (70-110)
[2021-07-01] MEDS: CARVEDILOL 12.5 MG TABLET PO SCH (21:29)
[2021-07-01] MEDS: FUROSEMIDE 20 MG/2 ML VIAL IVP SCH (21:29)
[2021-07-01 21:51] LABS: GLUCOSE,POINT OF CARE 153 MG/DL (70-110)
[2021-07-01 22:48] VITALS: BP 151/81
[2021-07-02] MEDS: HEPARIN SODIUM,PORCINE 5,000 UNITS/ML VIAL SQ SCH ×3 (00:33→17:22)
[2021-07-02 04:45] VITALS: BP 136/82
[2021-07-02 05:49] LABS: BASOPHILS % (AUTO) 0.2 % (0.0-2.0); EOSINOPHILS % (AUTO) 3.4 % (1.0-6.0); HEMATOCRIT 25.1 % (41-53); LYMPHOCYTES # (AUTO) 0.6 K/uL (1.0-4.8); MEAN CORPUSCULAR HEMOGLOBIN 27.6 pg (26.0-34.0); MEAN CORPUSCULAR HGB CONC 31.8 G/dL (31.0-37.0); MEAN CORPUSCULAR VOLUME 87 fL (80-100); MONOCYTES # (AUTO) 0.2 K/uL (0.1-1.0); NEUTROPHILS # (AUTO) 1.5 K/uL (1.8-7.7); NEUTROPHILS % (AUTO) 64.4 % (40.0-70.0); PLATELET COUNT (AUTO) 164 K/uL (150-450); RED BLOOD CELL COUNT(AUTO) 2.89 MIL/uL (4.50-5.90)
[2021-07-02 06:11] LABS: CALCIUM, TOTAL 7.4 mg/dL (8.8-10.5); CREATININE 1.45 mg/dL (0.60-1.30); POTASSIUM 3.4 mmol/L (3.5-5.1)
[2021-07-02 07:06] LABS: GLUCOMETER DEV NAME(LOC) 5N.1C; GLUCOSE,POINT OF CARE 97 MG/DL (70-110)
[2021-07-02 07:06] LABS: GLUCOMETER DEV NAME(LOC) 5N.1C; GLUCOSE,POINT OF CARE 127 MG/DL (70-110)
[2021-07-02 07:49] VITALS: BP 127/76
[2021-07-02] MEDS: CARVEDILOL 12.5 MG TABLET PO SCH ×2 (08:01→20:24)
[2021-07-02] MEDS: FUROSEMIDE 20 MG/2 ML VIAL IVP SCH (08:01)
[2021-07-02] MEDS: DOCUSATE SODIUM 100 MG CAPSULE PO SCH ×3 (08:01→20:34)
[2021-07-02] MEDS: AmLODIPine BESYLATE 5 MG TABLET PO SCH (08:01)
[2021-07-02] MEDS: PANTOPRAZOLE SODIUM 40 MG DR TABLET PO SCH (08:01)
[2021-07-02 11:09] VITALS: BP 121/73
[2021-07-02 16:06] VITALS: BP 128/68
[2021-07-02] MEDS: NYSTATIN 15 GM POWDER BOTTLE TP SCH ×2 (17:21→20:25)
[2021-07-02 17:26] LABS: GLUCOMETER DEV NAME(LOC) 5S.2B; GLUCOSE,POINT OF CARE 68 MG/DL (70-110)
[2021-07-02 19:48] VITALS: BP 131/68
[2021-07-02 20:21] LABS: GLUCOMETER DEV NAME(LOC) 5N.1C; GLUCOSE,POINT OF CARE 73 MG/DL (70-110)
[2021-07-02] MEDS: FUROSEMIDE 40 MG/4 ML VIAL IVP SCH (20:24)
[2021-07-03] VITALS (8 sets, daily range): BP systolic 115–141; BP diastolic 58–81
[2021-07-03] MEDS: HEPARIN SODIUM,PORCINE 5,000 UNITS/ML VIAL SQ SCH ×4 (00:19→23:24)
[2021-07-03 03:31] LABS: GLUCOMETER DEV NAME(LOC) 5N.1C; GLUCOSE,POINT OF CARE 122 MG/DL (70-110)
[2021-07-03 06:51] LABS: GLUCOMETER DEV NAME(LOC) 5N.1C; GLUCOSE,POINT OF CARE 92 MG/DL (70-110)
[2021-07-03 07:01] LABS: BASOPHILS % (AUTO) 0.3 % (0.0-2.0); EOSINOPHILS % (AUTO) 2.7 % (1.0-6.0); HEMATOCRIT 26.1 % (41-53); HEMOGLOBIN 8.3 g/dL (13.5-17.5); LYMPHOCYTES # (AUTO) 0.8 K/uL (1.0-4.8); LYMPHOCYTES % (AUTO) 36.7 % (22.0-44.0); MEAN CORPUSCULAR HEMOGLOBIN 27.3 pg (26.0-34.0); MEAN CORPUSCULAR HGB CONC 31.7 G/dL (31.0-37.0); MEAN CORPUSCULAR VOLUME 86 fL (80-100); MONOCYTES # (AUTO) 0.2 K/uL (0.1-1.0); MONOCYTES % (AUTO) 8.5 % (2.0-9.0); NEUTROPHILS # (AUTO) 1.2 K/uL (1.8-7.7); NEUTROPHILS % (AUTO) 51.8 % (40.0-70.0); PLATELET COUNT (AUTO) 131 K/uL (150-450); RED BLOOD CELL COUNT(AUTO) 3.03 MIL/uL (4.50-5.90); RED CELL DISTRIBUTION WIDTH 23.8 % (11.5-14.5)
[2021-07-03 07:49] LABS: ANION GAP 1 mmol/L (8-16); CALCIUM, TOTAL 7.5 mg/dL (8.8-10.5); CARBON DIOXIDE 32 mmol/L (22-29); CHLORIDE 101 mmol/L (98-107); CREATININE 1.34 mg/dL (0.60-1.30); GLUCOSE,RANDOM 99 mg/dL (70-110); POTASSIUM 3.6 mmol/L (3.5-5.1); SODIUM SERUM 134 mmol/L (136-145); UREA NITROGEN, BLOOD 20 mg/dL (7-18)
[2021-07-03 07:52] LABS: GLOMERULAR FILTR. RATE CALC > 60 mL/min (>60)
[2021-07-03] MEDS: FUROSEMIDE 40 MG/4 ML VIAL IVP SCH ×2 (09:23→20:30)
[2021-07-03] MEDS: AmLODIPine BESYLATE 5 MG TABLET PO SCH (09:24)
[2021-07-03] MEDS: CARVEDILOL 12.5 MG TABLET PO SCH ×2 (09:24→20:29)
[2021-07-03] MEDS: PANTOPRAZOLE SODIUM 40 MG DR TABLET PO SCH (09:24)
[2021-07-03] MEDS: DOCUSATE SODIUM 100 MG CAPSULE PO SCH ×2 (09:25→20:30)
[2021-07-03] MEDS: NYSTATIN 15 GM POWDER BOTTLE TP SCH ×4 (09:35→20:30)
[2021-07-03 11:56] LABS: GLUCOMETER DEV NAME(LOC) 5S.2B; GLUCOSE,POINT OF CARE 84 MG/DL (70-110)
[2021-07-03] MEDS: SACUBITRIL/VALSARTAN 24-26 MG TABLET PO SCH (20:30)
[2021-07-04 00:21] LABS: GLUCOMETER DEV NAME(LOC) 5N.1C; GLUCOSE,POINT OF CARE 149 MG/DL (70-110)
[2021-07-04 00:21] LABS: GLUCOMETER DEV NAME(LOC) 5S.2B; GLUCOSE,POINT OF CARE 82 MG/DL (70-110)
[2021-07-04 04:13] VITALS: BP 109/60
[2021-07-04 07:47] VITALS: BP 114/68
[2021-07-04] MEDS: HEPARIN SODIUM,PORCINE 5,000 UNITS/ML VIAL SQ SCH ×3 (08:00→23:25)
[2021-07-04 09:37] LABS: GLUCOMETER DEV NAME(LOC) 5N.1C; GLUCOSE,POINT OF CARE 97 MG/DL (70-110)
[2021-07-04] MEDS: NYSTATIN 15 GM POWDER BOTTLE TP SCH ×4 (09:47→20:05)
[2021-07-04] MEDS: FUROSEMIDE 40 MG/4 ML VIAL IVP SCH (09:48)
[2021-07-04] MEDS: SACUBITRIL/VALSARTAN 24-26 MG TABLET PO SCH ×2 (09:49→20:04)
[2021-07-04] MEDS: PANTOPRAZOLE SODIUM 40 MG DR TABLET PO SCH (09:50)
[2021-07-04] MEDS: DOCUSATE SODIUM 100 MG CAPSULE PO SCH ×2 (09:50→20:05)
[2021-07-04] MEDS: CARVEDILOL 12.5 MG TABLET PO SCH ×2 (09:50→20:04)
[2021-07-04 10:04] LABS: BASOPHILS % (AUTO) 0.5 % (0.0-2.0); EOSINOPHILS % (AUTO) 1.5 % (1.0-6.0); HEMATOCRIT 25.8 % (41-53); HEMOGLOBIN 8.3 g/dL (13.5-17.5); LYMPHOCYTES % (AUTO) 36.8 % (22.0-44.0); MEAN CORPUSCULAR HEMOGLOBIN 27.9 pg (26.0-34.0); MEAN CORPUSCULAR HGB CONC 32.2 G/dL (31.0-37.0); MEAN CORPUSCULAR VOLUME 87 fL (80-100); MONOCYTES # (AUTO) 0.2 K/uL (0.1-1.0); MONOCYTES % (AUTO) 6.7 % (2.0-9.0); NEUTROPHILS # (AUTO) 1.5 K/uL (1.8-7.7); NEUTROPHILS % (AUTO) 54.5 % (40.0-70.0); PLATELET COUNT (AUTO) 138 K/uL (150-450); RED BLOOD CELL COUNT(AUTO) 2.98 MIL/uL (4.50-5.90); RED CELL DISTRIBUTION WIDTH 23.3 % (11.5-14.5)
[2021-07-04 11:37] VITALS: BP 124/73
[2021-07-04 12:06] LABS: GLUCOMETER DEV NAME(LOC) 5S.2B; GLUCOSE,POINT OF CARE 205 MG/DL (70-110)
[2021-07-04 15:18] VITALS: BP 131/67
[2021-07-04 18:31] LABS: GLUCOMETER DEV NAME(LOC) 5N.1C; GLUCOSE,POINT OF CARE 103 MG/DL (70-110)
[2021-07-04] MEDS: FUROSEMIDE 40 MG TABLET PO SCH (20:04)
[2021-07-04 20:07] VITALS: BP 117/64
[2021-07-05] VITALS (7 sets, daily range): BP systolic 112–141; BP diastolic 54–85
[2021-07-05 01:41] LABS: GLUCOMETER DEV NAME(LOC) 5N.1C; GLUCOSE,POINT OF CARE 118 MG/DL (70-110)
[2021-07-05 06:41] LABS: GLUCOMETER DEV NAME(LOC) 5N.1C; GLUCOSE,POINT OF CARE 107 MG/DL (70-110)
[2021-07-05] MEDS: HEPARIN SODIUM,PORCINE 5,000 UNITS/ML VIAL SQ SCH ×3 (08:00→23:55)
[2021-07-05] MEDS: SACUBITRIL/VALSARTAN 24-26 MG TABLET PO SCH ×3 (08:18→23:55)
[2021-07-05] MEDS: CARVEDILOL 12.5 MG TABLET PO SCH ×2 (08:18→23:55)
[2021-07-05] MEDS: PANTOPRAZOLE SODIUM 40 MG DR TABLET PO SCH (08:18)
[2021-07-05] MEDS: FUROSEMIDE 40 MG TABLET PO SCH ×2 (08:18→20:35)
[2021-07-05] MEDS: DOCUSATE SODIUM 100 MG CAPSULE PO SCH ×2 (08:18→20:36)
[2021-07-05] MEDS: NYSTATIN 15 GM POWDER BOTTLE TP SCH ×4 (08:19→20:36)
[2021-07-05 08:30] LABS: BASOPHILS % (AUTO) 0.4 % (0.0-2.0); EOSINOPHILS % (AUTO) 1.7 % (1.0-6.0); HEMATOCRIT 27.4 % (41-53); HEMOGLOBIN 8.6 g/dL (13.5-17.5); LYMPHOCYTES # (AUTO) 1.2 K/uL (1.0-4.8); LYMPHOCYTES % (AUTO) 40.6 % (22.0-44.0); MEAN CORPUSCULAR HEMOGLOBIN 27.1 pg (26.0-34.0); MEAN CORPUSCULAR HGB CONC 31.3 G/dL (31.0-37.0); MEAN CORPUSCULAR VOLUME 87 fL (80-100); MONOCYTES # (AUTO) 0.2 K/uL (0.1-1.0); MONOCYTES % (AUTO) 7.1 % (2.0-9.0); NEUTROPHILS # (AUTO) 1.4 K/uL (1.8-7.7); NEUTROPHILS % (AUTO) 50.2 % (40.0-70.0); PLATELET COUNT (AUTO) 159 K/uL (150-450); RED BLOOD CELL COUNT(AUTO) 3.17 MIL/uL (4.50-5.90); RED CELL DISTRIBUTION WIDTH 23.2 % (11.5-14.5)
[2021-07-05 08:49] LABS: ALANINE AMINOTRANSFERASE 17 U/L (12-78); ALBUMIN 1.3 g/dL (3.4-5.0); ALKALINE PHOSPHATASE 33 U/L (46-116); ANION GAP -1 mmol/L (8-16); ASPARTATE AMINOTRANSFERASE 20 U/L (15-37); BILIRUBIN,TOTAL 0.2 mg/dL (0.1-1.0); CALCIUM, TOTAL 7.5 mg/dL (8.8-10.5); CARBON DIOXIDE 36 mmol/L (22-29); CHLORIDE 99 mmol/L (98-107); CREATININE 1.29 mg/dL (0.60-1.30); GLUCOSE,RANDOM 71 mg/dL (70-110); POTASSIUM 3.9 mmol/L (3.5-5.1); SODIUM SERUM 134 mmol/L (136-145); TOTAL PROTEIN, SERUM 10.2 g/dL (6.4-8.2); UREA NITROGEN, BLOOD 22 mg/dL (7-18)
[2021-07-05 08:50] LABS: GLOMERULAR FILTR. RATE CALC > 60 mL/min (>60)
[2021-07-06 05:16] VITALS: BP 119/77
[2021-07-06 07:41] VITALS: BP 111/68
[2021-07-06 07:54] LABS: BASOPHILS % (AUTO) 0.4 % (0.0-2.0); EOSINOPHILS % (AUTO) 1.5 % (1.0-6.0); HEMATOCRIT 27.2 % (41-53); HEMOGLOBIN 8.8 g/dL (13.5-17.5); LYMPHOCYTES % (AUTO) 39.1 % (22.0-44.0); MEAN CORPUSCULAR HEMOGLOBIN 27.7 pg (26.0-34.0); MEAN CORPUSCULAR HGB CONC 32.4 G/dL (31.0-37.0); MEAN CORPUSCULAR VOLUME 85 fL (80-100); MONOCYTES # (AUTO) 0.2 K/uL (0.1-1.0); MONOCYTES % (AUTO) 6.5 % (2.0-9.0); NEUTROPHILS # (AUTO) 1.4 K/uL (1.8-7.7); NEUTROPHILS % (AUTO) 52.5 % (40.0-70.0); PLATELET COUNT (AUTO) 152 K/uL (150-450); RED BLOOD CELL COUNT(AUTO) 3.18 MIL/uL (4.50-5.90); RED CELL DISTRIBUTION WIDTH 23.2 % (11.5-14.5)
[2021-07-06 07:59] LABS: ALANINE AMINOTRANSFERASE 17 U/L (12-78); ALBUMIN 1.3 g/dL (3.4-5.0); ALKALINE PHOSPHATASE 27 U/L (46-116); ANION GAP -1 mmol/L (8-16); ASPARTATE AMINOTRANSFERASE 21 U/L (15-37); BILIRUBIN,TOTAL 0.2 mg/dL (0.1-1.0); CALCIUM, TOTAL 7.5 mg/dL (8.8-10.5); CARBON DIOXIDE 35 mmol/L (22-29); CHLORIDE 98 mmol/L (98-107); CREATININE 1.23 mg/dL (0.60-1.30); GLUCOSE,RANDOM 121 mg/dL (70-110); POTASSIUM 4.5 mmol/L (3.5-5.1); SODIUM SERUM 132 mmol/L (136-145); TOTAL PROTEIN, SERUM 9.8 g/dL (6.4-8.2); UREA NITROGEN, BLOOD 20 mg/dL (7-18)
[2021-07-06 08:04] LABS: GLOMERULAR FILTR. RATE CALC > 60 mL/min (>60)
[2021-07-06] MEDS: FUROSEMIDE 40 MG TABLET PO SCH ×2 (08:18→20:20)
[2021-07-06] MEDS: MULTIVITAMINS WITH MINERALS, THERAPEUTIC TABLET PO SCH (08:18)
[2021-07-06] MEDS: SACUBITRIL/VALSARTAN 24-26 MG TABLET PO SCH ×2 (08:18→20:20)
[2021-07-06] MEDS: NYSTATIN 15 GM POWDER BOTTLE TP SCH ×4 (08:18→20:20)
[2021-07-06] MEDS: THIAMINE 100 MG TABLET PO SCH (08:19)
[2021-07-06] MEDS: PANTOPRAZOLE SODIUM 40 MG DR TABLET PO SCH (08:19)
[2021-07-06] MEDS: CARVEDILOL 12.5 MG TABLET PO SCH ×2 (08:20→20:20)
[2021-07-06] MEDS: HEPARIN SODIUM,PORCINE 5,000 UNITS/ML VIAL SQ SCH ×3 (08:20→23:15)
[2021-07-06] MEDS: FOLIC ACID 1 MG TABLET PO SCH (08:24)
[2021-07-06 08:26] LABS: GLUCOMETER DEV NAME(LOC) 5N.1C; GLUCOSE,POINT OF CARE 110 MG/DL (70-110)
[2021-07-06 08:26] LABS: GLUCOMETER DEV NAME(LOC) 5S.2B; GLUCOSE,POINT OF CARE 93 MG/DL (70-110)
[2021-07-06 08:26] LABS: GLUCOMETER DEV NAME(LOC) 5S.2B; GLUCOSE,POINT OF CARE 105 MG/DL (70-110)
[2021-07-06 08:26] LABS: GLUCOMETER DEV NAME(LOC) 5N.1C; GLUCOSE,POINT OF CARE 92 MG/DL (70-110)
[2021-07-06] MEDS: DOCUSATE SODIUM 100 MG CAPSULE PO SCH ×2 (08:26→20:20)
[2021-07-06 11:14] VITALS: BP 114/59
[2021-07-06 13:31] LABS: GLUCOMETER DEV NAME(LOC) 5S.2B; GLUCOSE,POINT OF CARE 103 MG/DL (70-110)
[2021-07-06 15:29] VITALS: BP 113/66
[2021-07-06 19:59] VITALS: BP 104/59
[2021-07-06 23:56] VITALS: BP 114/58
[2021-07-07 01:46] LABS: GLUCOMETER DEV NAME(LOC) 5N.1C; GLUCOSE,POINT OF CARE 103 MG/DL (70-110)
[2021-07-07 04:46] VITALS: BP 115/59
[2021-07-07 07:07] VITALS: BP 110/62
[2021-07-07 07:17] LABS: BASOPHILS % (AUTO) 0.7 % (0.0-2.0); EOSINOPHILS % (AUTO) 2.2 % (1.0-6.0); HEMATOCRIT 29.4 % (41-53); HEMOGLOBIN 9.3 g/dL (13.5-17.5); LYMPHOCYTES # (AUTO) 1.6 K/uL (1.0-4.8); LYMPHOCYTES % (AUTO) 53.8 % (22.0-44.0); MEAN CORPUSCULAR HEMOGLOBIN 27.2 pg (26.0-34.0); MEAN CORPUSCULAR HGB CONC 31.6 G/dL (31.0-37.0); MEAN CORPUSCULAR VOLUME 86 fL (80-100); MONOCYTES # (AUTO) 0.3 K/uL (0.1-1.0); MONOCYTES % (AUTO) 8.9 % (2.0-9.0); NEUTROPHILS % (AUTO) 34.4 % (40.0-70.0); PLATELET COUNT (AUTO) 153 K/uL (150-450); RED BLOOD CELL COUNT(AUTO) 3.42 MIL/uL (4.50-5.90); RED CELL DISTRIBUTION WIDTH 23.3 % (11.5-14.5)
[2021-07-07 07:27] LABS: ALANINE AMINOTRANSFERASE 17 U/L (12-78); ALBUMIN 1.3 g/dL (3.4-5.0); ALKALINE PHOSPHATASE 26 U/L (46-116); ANION GAP -2 mmol/L (8-16); ASPARTATE AMINOTRANSFERASE 27 U/L (15-37); BILIRUBIN,TOTAL 0.2 mg/dL (0.1-1.0); CALCIUM, TOTAL 7.9 mg/dL (8.8-10.5); CARBON DIOXIDE 35 mmol/L (22-29); CHLORIDE 100 mmol/L (98-107); CREATININE 1.19 mg/dL (0.60-1.30); GLUCOSE,RANDOM 89 mg/dL (70-110); SODIUM SERUM 133 mmol/L (136-145); UREA NITROGEN, BLOOD 24 mg/dL (7-18)
[2021-07-07 07:28] LABS: GLOMERULAR FILTR. RATE CALC > 60 mL/min (>60)
[2021-07-07] MEDS: MULTIVITAMINS WITH MINERALS, THERAPEUTIC TABLET PO SCH (08:23)
[2021-07-07] MEDS: FUROSEMIDE 40 MG TABLET PO SCH (08:24)
[2021-07-07] MEDS: FOLIC ACID 1 MG TABLET PO SCH (08:24)
[2021-07-07] MEDS: SACUBITRIL/VALSARTAN 24-26 MG TABLET PO SCH (08:24)
[2021-07-07] MEDS: CARVEDILOL 12.5 MG TABLET PO SCH (08:24)
[2021-07-07] MEDS: PANTOPRAZOLE SODIUM 40 MG DR TABLET PO SCH (08:24)
[2021-07-07] MEDS: THIAMINE 100 MG TABLET PO SCH (08:25)
[2021-07-07] MEDS: HEPARIN SODIUM,PORCINE 5,000 UNITS/ML VIAL SQ SCH ×2 (08:25→16:34)
[2021-07-07] MEDS: DOCUSATE SODIUM 100 MG CAPSULE PO SCH (08:25)
[2021-07-07 10:41] LABS: GLUCOMETER DEV NAME(LOC) 5S.2B; GLUCOSE,POINT OF CARE 106 MG/DL (70-110)
[2021-07-07 10:41] LABS: GLUCOMETER DEV NAME(LOC) 5N.1C; GLUCOSE,POINT OF CARE 90 MG/DL (70-110)
[2021-07-07 10:48] VITALS: BP 101/53
[2021-07-07] MEDS: NYSTATIN 15 GM POWDER BOTTLE TP SCH ×3 (12:00→16:34)
[2021-07-07 16:01] VITALS: BP 101/72
[2021-07-08 02:01] LABS: GLUCOMETER DEV NAME(LOC) 5S.2B; GLUCOSE,POINT OF CARE 186 MG/DL (70-110)
== END 2021-07-07 18:30 | DRG 637 ==
LOC: EMS 12:46 → 5S 20:00 → UNDOADMIN 21:14 → 5S 21:14
PROVIDERS: ADMIT Internal Medicine; ATTEND Internal Medicine
DX: E11.649 Type 2 diabetes mellitus with hypoglycemia without coma (principal); G93.41 Metabolic encephalopathy; J96.01 Acute respiratory failure with hypoxia; I50.43 Acute on chronic combined systolic (congestive) and diastolic (congestive) heart failure; I13.0 Hypertensive heart and chronic kidney disease with heart failure and stage 1 through stage 4 chronic kidney disease, or unspecified chronic kidney disease; E87.1 Hypo-osmolality and hyponatremia; I47.2 Ventricular tachycardia; N17.9 Acute kidney failure, unspecified; E78.5 Hyperlipidemia, unspecified; Z20.822 Contact with and (suspected) exposure to COVID-19; D63.8 Anemia in other chronic diseases classified elsewhere; E87.6 Hypokalemia; I25.10 Atherosclerotic heart disease of native coronary artery without angina pectoris; E11.22 Type 2 diabetes mellitus with diabetic chronic kidney disease; N18.30 Chronic kidney disease, stage 3 unspecified; Z95.5 Presence of coronary angioplasty implant and graft; F17.210 Nicotine dependence, cigarettes, uncomplicated; I36.1 Nonrheumatic tricuspid (valve) insufficiency; W01.0XXA Fall on same level from slipping, tripping and stumbling without subsequent striking against object, initial encounter; Y93.89 Activity, other specified; Y92.098 Other place in other non-institutional residence as the place of occurrence of the external cause; Y99.8 Other external cause status
CPT/HCPCS: 70450; 71045; 80048; 80053; 82550; 82962; 83036; 83735; 83880; 84484; 85025; 85610; 85730; 93005; 93306; 97162; 97530; 99285; J1644; J1940; J2354; Q9967; 36415-L1; 36415-TC